=== PATIENT | male | born 1965 | race Caucasian/White ===

== ENCOUNTER 2018-12-25 19:08 | Emergency (ER) | payer SELFPAY ==
[2018-12-25] MEDS ORDERED: HYDROCODONE/ACETAMINOPHEN 5-325 MG TABLET PO ONE (20:36)
--- NOTE | 2018-12-25 20:40 | ER Document Report ---
ED Medical Screen (RME) - General Chief Complaint: Fall Stated Complaint: BROKEN ANKLE (RIGHT) FOOT Time Seen by Provider: 12/25/18 20:35 Mode of Arrival: Wheelchair Information source: Patient Notes: 53-year-old male presents to ED for complaint of pain to the right ankle. He states he was up on a ladder when the ladder fell at about 645 this evening. He states he was a foot up in the air when he fell hitting his head on the ground but has had no loss of consciousness and does not have a headache at this time but is foot and ankle were caught between the rungs of the ladder and that he landed on the ladder. He does have a very swollen painful right foot and ankle. He states the only medical history he has is fractures of bilateral tibia and and left fibula all at the knee with surgeries to both legs. He states he does drink once a month and is unemployed. He lives with his dad. I have greeted and performed a rapid initial assessment of this patient. A comprehensive ED assessment and evaluation of the patient, analysis of test results and completion of medical decision making process will be conducted by an additional ED providers. TRAVEL OUTSIDE OF THE [place] IN LAST 30 DAYS: No - Related Data Allergies/Adverse Reactions: No Known Allergies Allergy (Unverified 12/25/18 20:04) Physical Exam - Vital signs Vitals: Temp Pulse Resp BP Pulse Ox 97.8 F 79 16 112/63 96 12/25/18 20:06 12/25/18 20:06 12/25/18 20:06 12/25/18 20:06 12/25/18 20:06 Course - Vital Signs Vital signs: Temp Pulse Resp BP Pulse Ox 97.8 F 79 16 112/63 96 12/25/18 20:06 12/25/18 20:06 12/25/18 20:06 12/25/18 20:06 12/25/18 20:06
--- NOTE | 2018-12-25 21:51 | RADIOLOGY REPORT (SQ) ---
EXAM DESCRIPTION: XR ANKLE 3 OR MORE VIEWS COMPLETED DATE/TME: 12/25/2018 20:36 CLINICAL HISTORY: 53 years Male ,fell off ladder and injured right ankle and foot COMPARISON: None. TECHNIQUE: Right ankle, 3 view FINDINGS: There is a mildly displaced fracture along the tip of the fibula with associated soft tissue swelling. The talar dome appears intact. Soft tissue swelling is also present medially. Suspect avulsion injury off the medial aspect of the talus. Small avulsion fracture also suspected off the superior margin of the talus. Moderate joint effusion. IMPRESSION: SSoft tissue swelling around the ankle joint effusion Comminuted fracture of the distal aspect of the fibula and suspect avulsion injury off the medial and superior margin of the talus.
--- NOTE | 2018-12-25 21:52 | RADIOLOGY REPORT (SQ) ---
EXAM DESCRIPTION: XR FOOT 3 OR MORE VIEWS COMPLETED DATE/TME: 12/25/2018 20:36 CLINICAL HISTORY: 53 years, Male, fell off ladder and injured right ankle and foot COMPARISON: None. NUMBER OF VIEWS: 3 TECHNIQUE: 3 views right foot LIMITATIONS: None. FINDINGS: Partially visualized avulsion fracture of the lateral malleolus with soft tissue swelling of ankle. No other fractures. No dislocation IMPRESSION: Partially visualized lateral malleolus fracture. copyright 2010 [employer]- All Rights Reserved
[2018-12-25] MEDS ORDERED: HYDROCODONE/ACETAMINOPHEN 5-325 MG (6 TAB/ER DISP) PO PRN (21:56)
--- NOTE | 2018-12-25 22:02 | ER Document Report ---
ED Fall - General Chief Complaint: Fall Stated Complaint: POSSIBLE BROKEN ANKLE (RIGHT) FOOT Time Seen by Provider: 12/25/18 20:35 Primary Care Provider: JAIR QUIÑONEZ MD [ACTIVE STAFF] - Follow up in 3-5 days Mode of Arrival: Wheelchair Information source: Patient Notes: Patient is a 53-year-old male that comes emergency department for chief complaint of injury to the right ankle/foot. He states that he was standing on a ladder that was against the roof when the ladder slipped off of the roof and fell forward, he caught his leg in the ladder and landed awkwardly on the right ankle/foot. He did roll onto his side onto his right shoulder and he did hit his head on the ground, however he states he was not knocked out, denies focal numbness or weakness, denies alcohol, denies current headache. His only complaint is right ankle pain. He is not on a blood thinner. TRAVEL OUTSIDE OF THE [place] IN LAST 30 DAYS: No - Related data Allergies/Adverse Reactions: No Known Allergies Allergy (Unverified 12/25/18 20:04) Past Medical History - General Information source: Patient - Social History Smoking Status: Never Smoker Chew tobacco use (# tins/day): No Frequency of alcohol use: Social Drug Abuse: None Lives with: Family Family History: Reviewed & Not Pertinent Patient has suicidal ideation: No Patient has homicidal ideation: No - Medical History Medical History: Negative Renal/ Medical History: Denies: Hx Peritoneal Dialysis - Immunizations Hx Diphtheria, Pertussis, Tetanus Vaccination: Yes Review of Systems - Review of Systems Constitutional: No symptoms reported EENT: No symptoms reported Cardiovascular: No symptoms reported Respiratory: No symptoms reported Gastrointestinal: No symptoms reported Genitourinary: No symptoms reported Male Genitourinary: No symptoms reported Musculoskeletal: See HPI Skin: No symptoms reported Hematologic/Lymphatic: No symptoms reported Neurological/Psychological: No symptoms reported Physical Exam - Vital signs Vitals: Temp Pulse Resp BP Pulse Ox 97.8 F 79 16 112/63 96 12/25/18 20:06 12/25/18 20:06 12/25/18 20:06 12/25/18 20:06 12/25/18 20:06 - Notes Notes: GENERAL: Alert, interacts well. No acute distress. HEAD: Normocephalic, atraumatic. EYES: Pupils equal, round, and reactive to light. Extraocular movements intact. ENT: Oral mucosa moist, tongue midline. Oropharynx unremarkable. Airway patent. LUNGS: Clear to auscultation bilaterally, no wheezes, rales, or rhonchi. No respiratory distress. HEART: Regular rate and rhythm. No murmur ABDOMEN: Soft, non-tender. Non-distended. EXTREMITIES: Tender with swelling over the entire right ankle with limited range of motion of the ankle. Capillary refill and sensation in the foot intact, no cyanosis. Leg, knee, hip unremarkable. Extremities unremarkable otherwise. BACK: no cervical, thoracic, lumbar midline tenderness. No saddle anesthesia, normal distal neurovascular exam. NEUROLOGICAL: Alert and oriented x3. Normal speech. Cranial nerves II through XII grossly intact. PSYCH: Normal affect, normal mood. SKIN: Warm, dry, normal turgor. No rashes or lesions noted. Course - Re-evaluation Re-evalutation: Patient with a nontender shoulder, no signs of head trauma, no loss of consciousness, no vomiting, no neurological deficits, denies alcohol. Very well-appearing. Denies headache. Patient is only concerning finding is he has a very swollen ankle suggestive of a fracture. X-ray showing fracture of the distal fibula with avulsion, possible talus avulsion as well, there is also questionable comminuted component to the fibula although this is not appear to be severely comminuted on reviewing the images. I did discuss with Dr. Ferguson, he recommends simply immobilization and follow-up with orthopedics. I discussed details with patient at length, patient and sarthak martinez state he will follow-up closely with orthopedics and return for any concerning symptoms including unexpected severe pain or signs of symptoms in regards to the head injury. 12/26/18 06:07 - Vital Signs Vital signs: Temp Pulse Resp BP Pulse Ox 98.5 F 67 16 127/65 H 98 12/25/18 23:47 12/25/18 23:47 12/25/18 23:47 12/25/18 23:47 12/25/18 23:47 Procedures - Immobilization right ankle Pre-Proc Neuro Vasc Exam: Normal Immobilizer type: Posterior ankle Performed by: PCT Post-Proc Neuro Vasc Exam: Normal Alignment checked and good: Yes Discharge - Discharge Clinical Impression: Right ankle injury Qualifiers: Encounter type: initial encounter Qualified Code(s): S99.911A - Unspecified injury of right ankle, initial encounter Fibula fracture Qualifiers: Encounter type: initial encounter Fibula location: distal Fracture type: closed Fracture morphology: unspecified fracture morphology Laterality: right Qualified Code(s): S82.831A - Other fracture of upper and lower end of right fibula, initial encounter for closed fracture Avulsion fracture of talus Qualifiers: Encounter type: initial encounter Fracture type: closed Fracture alignment: nondisplaced Laterality: right Qualified Code(s): S92.154A - Nondisplaced avulsion fracture (chip fracture) of right talus, initial encounter for closed fracture Condition: Stable Disposition: HOME, SELF-CARE Additional Instructions: There is a fracture at the end of the bone called the fibula at the ankle, there was also a possible avulsion fracture of the talus which is part of your ankle. Wear the splint, use the crutches, take the pain medication if needed, follow-up with the orthopedics referral for additional management. Return if you worsen including severe swelling or pain, severe headache, vomiting, or something is not right. Prescriptions: Oxycodone HCl/Acetaminophen [Percocet 5-325 mg Tablet] 1 - 2 tab PO TID PRN #15 tablet PRN Reason: Referrals: JAIR QUIÑONEZ MD [ACTIVE STAFF] - Follow up in 3-5 days
[2018-12-25 23:48] VITALS: BP 127/65
== END 2018-12-25 23:48 | disposition home or self-care (01) ==
LOC: ER 19:08
PROC: 2W3QX1Z Immobilization of Right Lower Leg using Splint (ICD-10-PCS; principal; 2018-12-25)
DX: S82.831A Other fracture of upper and lower end of right fibula, initial encounter for closed fracture (principal); S92.154A Nondisplaced avulsion fracture (chip fracture) of right talus, initial encounter for closed fracture; M25.571 Pain in right ankle and joints of right foot; W11.XXXA Fall on and from ladder, initial encounter
CPT/HCPCS: 99283

== ENCOUNTER → 2019-03-19 | Outpatient (CLI) | payer OTHER ==
--- NOTE | 2019-03-19 17:07 | RADIOLOGY REPORT (SQ) ---
EXAM DESCRIPTION: MRI RT LOWER JOINT WITHOUT COMPLETED DATE/TIME: 03/19/2019 3:55 pm REASON FOR STUDY: S89.91XD UNSPECIFIED INJURY OF RIGHT LOWER LEG, SUBSEQUENT ENCOUNTER S89.91XD UNS PECIFIED INJURY OF RIGHT LOWER LEG, SUBSEQUENT E COMPARISON: Right foot and ankle films 12/25/2018 TECHNIQUE: Right ankle images acquired and stored on PACS. Multiplanar images include fat sensitive sequences as T1, fluid sensitive sequences as FST2/STIR, cartilage sensitive sequences as FSPD, and g radient echo sequences. LIMITATIONS: None. FINDINGS: BONE MARROW: No marrow edema to suggest acute fracture. However, there are multiple old h ealed fractures as follows: Healed fracture inferior aspect of the talus at the anterior subtalar joint on sagittal image 12. Question healed nondisplaced talar neck fracture axial image 11 15 x 6 mm nonunited fracture fragment or loose body along the lateral aspect, talus at the posterior facet subtalar joint. Best shown on sagittal image 7/21 9 mm nonunited fracture fragment or loose body along the medial aspect, talus at the posterior facet subtalar joint, best shown on sagittal image 13 and coronal image 22 No MR evidence of talar dome osteonecrosis. EFFUSIONS: No subtalar or tibiotalar effusions. OSSEOUS ARTICULATIONS: Normal tibiotalar, talonavicular and calcaneocuboid joints. Fracture fragmen ts along the inferior aspect of the talus at the anterior and posterior subtalar joints as above TALAR DOME AND TIBIAL PLAFOND: Normal cartilage. No osteochondral defect. ACHILLES TENDON: Intact without partial or full-thickness tear. No adjacent bursal fluid or edema. TIBIALIS ANTERIOR TENDON: Intact without edema at the 1st MT attachment. TIBIALIS POSTERIOR TENDON: Normal morphology and no edema at the navicular attachment. No tendon madison th fluid. FLEXOR HALLUCIS LONGUS AND FLEXOR DIGITORUM TENDONS: Normal morphology and no tendon sheath fluid. No edema of the os trigonum. PERONEUS LONGUS TENDON: Normal morphology and no tendon sheath fluid. No subluxation. PERONEUS BREVIS TENDON: Diffuse increased intrinsic signal distal to the lateral malleolus, best raghav wn on series 7, images 14 through 25 from tendinopathy. No tendon sheath fluid ATFL, CFL, PTFL: Grossly intact DELTOID LIGAMENT: Visualized components intact. TARSAL TUNNEL: No masses. No muscle atrophy. SINUS TARSI: No fluid. No reactive marrow edema or erosions. PLANTAR FASCIA: No signal alteration or tear. ADJACENT SOFT TISSUES: No masses. OTHER: No other significant finding. IMPRESSION: PERONEUS BREVIS TENDINOPATHY HEALED TALUS FRACTURES ABOVE TECHNICAL DOCUMENTATION: JOB ID: [id number] Event [id number] [employer]- All Rights Reserved Reading location - IP/workstation name: [email or web address]
== END ==
LOC: RAD 15:01
PROVIDERS: ATTEND Orthopaedic Surgery
DX: S89.91XD Unspecified injury of right lower leg, subsequent encounter (principal); X58.XXXD Exposure to other specified factors, subsequent encounter